=== PATIENT | female | born 1985 ===

== ENCOUNTER 2017-10-15 09:29 | Emergency (ER) | payer OTHER ==
[2017-10-15] MEDS ORDERED: KETOROLAC 30 MG/ML VIAL IVP ONE (10:10)
[2017-10-15] MEDS ORDERED: DIAZEPAM 5 MG TAB PO ONE (10:10)
--- NOTE | 2017-10-15 10:10 | ER Report ---
History and Physical Time Seen By MD: 10:09 HPI/ROS CHIEF COMPLAINT: Back Pain HISTORY OF PRESENT ILLNESS: Patient is a 31-year-old female here with complaints of mid to lower back pain which started 1 to 2 days prior. 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 She describes pain with movement in the mid to low back in the paraspinal musculature. Patient denies fevers, chills, chest pain, shortness of breath, abdominal pain, dysuria, hematuria, hematochezia, melena, saddle anesthesia. Patient is well and in no acute distress at time of evaluation. REVIEW OF SYSTEMS: Respiratory: No cough, no dyspnea. Cardiovascular: No chest pain, no palpitations. Gastrointestinal: No vomiting, no abdominal pain. Musculoskeletal: + Left paraspinal muscle tenderness on palpation, no step offs Past Medical/Surgical History Patient has a history of depression and anxiety, gastric bypass surgery Reviewed Nurses Notes: Yes Constitutional Vital Sign - Last 24 Hours 10/15/17 10/15/17 10/15/17 09:45 11:11 11:30 Temp 97.5 Pulse 73 72 Resp 18 B/P (MAP) 154/91 128/89 (102) 116/80 (92) Pulse Ox 96 93 O2 Delivery Room Air Physical Exam General Appearance: The patient is alert, has no immediate need for airway protection and no current signs of toxicity. Eyes: Pupils equal and round no injection. Gastrointestinal: Abdomen is soft and non tender, no masses, bowel sounds normal. Musculoskeletal: Neck: Neck is supple and non tender. Extremities have full range of motion and are non tender.- + Paraspinal muscle tenderness on palpation of the left mid-lower back Skin: No rashes or lesions. DIFFERENTIAL DIAGNOSIS: After history and physical exam differential diagnosis was considered for The initial differential diagnosis was reconsidered. [ Muscular pain] was considered and is a diagnosis of exclusion of more concerning causes. Herniated disc was considered and although it was not ruled out it is still considered a potential cause of the patient's pain. Intra- abdominal causes were considered and evaluated by reexamination. Urinary tract infection was considered and ruled out by urinalysis. Medical Decision Making ED Course/Re-evaluation ED Course Yudy is a 31-year-old female here with complaints of mid to lower back pain acute onset within the past 1-2 days. Patient was noted to have significant tenderness in the left paraspinal musculature. Patient denied fevers, chills, abdominal pain, bladder/bowel incontinence, saddle anesthesia. She was given a dose of Valium and an IM injection of Toradol with moderate relief of symptoms. Patient was in no acute distress at time of discharged Decision to Disposition Date: Oct 15, 2017 Decision to Disposition Time: 11:43 Depart Departure Latest Vital Signs Vital Signs Date Time Temp Pulse Resp B/P (MAP) Pulse Ox O2 Delivery O2 Flow Rate FiO2 10/15/17 11:30 116/80 (92) 10/15/17 11:11 72 93 10/15/17 09:45 97.5 18 Room Air Impression: Primary Impression: Back spasm Condition: Improved Departure Forms: ER Transition Record, Medications Reconciliation, Off Work/ School Form, School or Work Release?: Work Number of days to be released: 2 Patient Portal Information Patient Instructions: Back Pain (ED) Additional Instructions: You may alternate Advil and Tylenol for alleviation of pain. Please return promptly if you begin to experience worsening back pain, lower extremity weakness, bowel or bladder incontinence, fevers or chills. LAN MEDELLIN DO Oct 15, 2017 10:10
[2017-10-15] MEDS ORDERED: KETOROLAC 30 MG/ML VIAL IM ONE (10:45)
[2017-10-15 11:30] VITALS: BP 116/80
== END 2017-10-15 11:57 | disposition home or self-care (01) ==
LOC: ER 09:47
DX: M62.830 Muscle spasm of back (principal)
CPT/HCPCS: 96372; 99283; J1885

== ENCOUNTER → 2018-01-13 | Outpatient (CLI) | payer OTHER ==
[~2018-01-13] MED LIST: FERR-41 PO; MEDR5TAB PO; MULT-865 PO
== END ==
LOC: LAB 09:50
PROVIDERS: ATTEND Student in an Organized Health Care Education/Training Program
DX: R53.83 Other fatigue (principal)
CPT/HCPCS: 36415; 82306; 82607; 82728; 82746; 84443; 85027

== ENCOUNTER 2018-10-09 11:09 | Emergency (ER) | payer OTHER ==
[2018-10-09 11:18] VITALS: BP 131/99
[2018-10-09] MEDS ORDERED: IBUP800T37 PO (11:26)
[2018-10-09] MEDS ORDERED: ACET500T68 PO (11:26)
[2018-10-09] MEDS ORDERED: IBUPROFEN 800 MG TAB PO ONE (11:45)
[2018-10-09] MEDS ORDERED: ORPHENADRINE 60MG/2ML INJ IM ONE (11:45)
--- NOTE | 2018-10-09 12:01 | ER Report ---
History and Physical Time Seen By MD: 11:28 Hx. of Stated Complaint: pain in back since august and worsening in L side thoracic spine HPI/ROS CHIEF COMPLAINT: Back pain. HISTORY OF PRESENT ILLNESS: 32 yo female presents to the ED with left sided back pain that started about 1 month ago. 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 She denies numbness or tingling in extremities. She reports that because of the pain she has trouble taking deep breaths. Denies shortness of breath, cough or chest pain. Denies fever, chills, or recent illness. REVIEW OF SYSTEMS: Respiratory: As above. Cardiovascular: As above. Gastrointestinal: No vomiting, no abdominal pain. Musculoskeletal: As above. Allergies: Coded Allergies: No Known Drug Allergies (Unverified , 01/13/18) Home Meds Active Scripts Cyclobenzaprine Hcl (CYCLOBENZAPRINE HCL) 10 Mg Tablet, 5-10 MG PO TID PRN for MUSCLE SPASMS, #9 TAB Prov:MORGAN KENDALL CONTACT WORKER-BC 10/09/18 Ferrous Sulfate (FERROUS SULFATE) 325 Mg Tablet.dr, 1 TAB PO BID, #60 TAB 2 Refills 1 tab PO QD to BID as tolerated Prov:KIA BARRETT DO 01/14/18 Reported Medications Acetaminophen (TYLENOL EXTRA STRENGTH) 500 Mg Tablet, 500 MG PO, TAB 10/09/18 Ibuprofen (IBUPROFEN) 800 Mg Tablet, 1 TAB PO Q8H, TAB 10/09/18 Multivitamin (DAILY MULTIPLE VITAMIN) 1 Each Tablet, 1 TAB PO DAILY 01/13/18 Discontinued Scripts Medroxyprogesterone Acetate (PROVERA) 5 Mg Tablet, 5 MG PO DAILY for 10 Days, #10 TAB 5 Refills Take PO the last 10 days of the month every 3 months Prov:KIA BARRETT DO 01/13/18 Past Medical/Surgical History Medical and surgical history: patient wears glasses, history of depression without medication, gastric bypass surgery in 2009. Reviewed Nurses Notes: Yes Smoking Status: Never Smoker Hx Substance Use Disorder: No Hx Alcohol Use: No Constitutional Vital Sign - Last 24 Hours 10/09/18 10/09/18 11:18 12:48 Temp 99.1 Pulse 98 74 Resp 16 B/P (MAP) 131/99 Pulse Ox 95 95 O2 Delivery Room Air Room Air Physical Exam General Appearance: The patient is alert, has no immediate need for airway protection and no current signs of toxicity. Eyes: Pupils equal and round no injection. Respiratory: Chest is non tender, lungs are clear to auscultation. Cardiac: regular rate and rhythm, no murmurs or rubs. Gastrointestinal: Abdomen is soft and non tender, no masses, bowel sounds normal. Musculoskeletal: Neck: Neck is supple and non tender. Left side of thoracic back is tender to palpation, no bruising noted. Spine is non tender. Extremities have full sensation and full range of motion and are non tender. Skin: No rashes or lesions. DIFFERENTIAL DIAGNOSIS: After history and physical exam differential diagnosis was considered for muscle strain, disc degeneration, spinal stenosis, pyelonepritis. Medical Decision Making ED Course/Re-evaluation ED Course Admitted to room. History and physical obtained, differential diagnosis considered. 60 mg IM Norflex and 800 mg ibuprofen administered with moderate improvement. No x-rays obtained at this time as there was no acute trauma. Referral to physical therapy for evaluation and treatment. Back exercise instructions provided. Instructed to return for worsening symptoms or any concerns. I agree with EARNESTINE Jalloh student assessment, evaluation and diagnosis, I did examine the patient myself. Decision to Disposition Date: Oct 09, 2018 Decision to Disposition Time: 12:36 Depart Departure Latest Vital Signs Vital Signs Date Time Temp Pulse Resp B/P (MAP) Pulse Ox O2 Delivery O2 Flow Rate FiO2 10/09/18 12:48 74 95 Room Air 10/09/18 11:18 99.1 16 131/99 Impression: Primary Impression: Back pain Condition: Improved Disposition: HOME OR SELF-CARE New Scripts Cyclobenzaprine Hcl (CYCLOBENZAPRINE HCL) 10 Mg Tablet 5-10 MG PO TID PRN for MUSCLE SPASMS, #9 TAB Prov: MORGAN KENDALL-BC 10/09/18 Patient Instructions: Back Pain (ED), Lower Back Exercises (ED), Upper Back Exercises (GEN) Additional Instructions: Participate in physical therapy. Please take referral prescription with you. Use ice or heat and Tylenol or ibuprofen as needed for pain. Take flexaril as prescribed for muscle spasms and pain in addition to Tylenol/ibuprofen. Get plenty of rest, drink plenty of water. May return to work on October 14, 2018. Problem Qualifiers Primary Impression: Back pain Back pain location: thoracic back pain Chronicity: acute Back pain laterality: left Qualified Codes: M54.6 - Pain in thoracic spine MORGAN KENDALLP- Oct 09, 2018 12:01
[2018-10-09] MEDS ORDERED: CYCL10TA29 PO (12:35)
== END 2018-10-09 12:49 | disposition home or self-care (01) ==
LOC: ER 11:19
DX: M54.6 Pain in thoracic spine (principal)
CPT/HCPCS: 96372; 99283; J2360